=== PATIENT | female | born 2000 | race Caucasian/White ===

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

== ENCOUNTER 2019-11-11 06:00 | Day surgery (SDC) | payer OTHER ==
[~2019-11-11 06:00] MED LIST changes: +CLONAZE PO; +NEXIUM PO; +PEP PO; +PROZAC PO; +WELLBU PO
[2019-11-11] MEDS ORDERED: KETO10TA2 PO (14:11)
[2019-11-11] MEDS ORDERED: LEVOFLOXACIN500 MG PO (14:11)
== END 2019-11-11 17:55 | disposition home or self-care (01) ==
LOC: CIR.AMB 06:00
PROVIDERS: ATTEND Surgery
DX: L05.91 Pilonidal cyst without abscess (principal)